=== PATIENT | female | born 1955 | race Caucasian/White ===

== ENCOUNTER → 2020-01-27 | Outpatient (CLI) | payer OTHER ==
[2020-01-27 14:55] VITALS: BP 170/85
--- NOTE | 2020-01-27 14:55 | ER RDC ASSESSMENT REPORT ---
Intake - In the Last 14 days Have you traveled outside [place]?: No Have you been in close contact with someone CONFIRMED: No Worked in Healthcare?: No - Symptoms Subjective Fever([place] feverish): Yes Chills: No Muscule Aches: No Runny Nose: No Sore Throat: No Cough (New or worsening chronic cough): Yes Shortness of breath: Yes Nausea or Vomiting: No Headache: No Abdominal Pain: No Diarrhea(3 or more loose stools in last 24 hours): No - Do you have any of the following Chronic lung disease: Asthma or emphysema or COPD: Yes Chronic Lung Disease Comment: asthma Cystic Fibrosis: No Diabetes: No High Blood Pressure: No Cardiovascular Disease: No Chronic Kidney Disease: No Chronic Liver Disease: No Chronic blood disorder like Sickle Cell Disease: No Weak immune system due to disease or medication: No Neurologic condition that limits movement: No Developmental delay - Moderate to Severe: No Recent (within past 2 weeks) or current : No Morbid Obesity (>100 pounds over ideal weight): No - Objective Temperature: 97.4 F Pulse Rate: 80 Respiratory Rate: 14 Blood Pressure: 170/85 O2 Sat by Pulse Oximetry: 95 Objective: Given above, testing performed: rapid strep, Flu A/B were negative COVID 19 submitted to [facility] If Testing Performed: Test Specimen Type Sent to [facility] lab Disposition: Home; Selfcare General - General Chief Complaint: Cough Time Seen by Provider: 01/27/20 13:45 Mode of Arrival: Ambulatory Information source: Patient - [facility] Patient complains to provider of: Fever cough wheezing Onset: Other - 2-3 days ago Quality of pain: No pain Associated symptoms: Nonproductive cough, Fever, Shortness of breath Exacerbated by: Coughing Relieved by: Remaining still, Other - OTC meds Similar symptoms previously: No Recently seen / treated by doctor: No Past Medical History - General Information source: Patient - Social History Smoking Status: Former Smoker Family History: Reviewed & Not Pertinent - Past Medical History Cardiac Medical History: Reports: None Pulmonary Medical History: Reports: Hx Asthma EENT Medical History: Reports: None Neurological Medical History: Reports: None Endocrine Medical History: Reports: None Renal/ Medical History: Reports: None Malignancy Medical History: Reports: None GI Medical History: Reports: None Musculoskeletal Medical History: Reports None Skin Medical History: Reports None Psychiatric Medical History: Reports: None Traumatic Medical History: Reports: None Infectious Medical History: Reports: None Physical Exam - Vital signs Interpretation: Hypertensive - General General appearance: Appears well, Alert In distress: None Notes: PHYSICAL EXAMINATION: GENERAL: Well-appearing and in no acute distress. HEAD: Atraumatic, normocephalic. EYES: sclera anicteric, conjunctiva are normal. ENT: nares patent. Moist mucous membranes. NECK: Normal range of motion, supple without lymphadenopathy LUNGS: CTAB and equal. No wheezes rales or rhonchi. HEART: Regular rate and rhythm without murmurs ABDOMEN: Soft, nontender, normal bowel sounds, no guarding. EXTREMITIES: Normal range of motion, no pitting edema. No cyanosis. NEUROLOGICAL: Cranial nerves grossly intact. Normal speech. PSYCH: Normal mood, normal affect. SKIN: Warm, Dry, normal turgor, no rashes or lesions noted Diagnostic Results Laboratory Results: Flu A/B and rapid strep negative Patient Education/Counseling Counseling/Education: Patient presents with upper respiratory symptoms worrisome for possible Covid 19. Patient does not have emergency worrying symptoms such as difficulty breathing, shortness of breath, chest pain, pressure, confusion or cyanosis. Patient was advised to follow up with PCP regarding hypertension. Patient appears suitable for discharge. Patient's vital signs are stable and patient is nontoxic in appearance. Good return precautions have been discussed with patient, patient verbalized understanding and is agreeable with discharge plan of care at this time. Guidance for worsening S/SX: As a person under investigation for Covid 19, the [place] department of Health and Human Services, division of public health advises you to adhere to the following guidance until your test results are reported to you. If your test result is positive, you will receive additional information from your provider and your local health department at that time. Remain at home until you are cleared by the health provider or public health authorities. Keep a log of visitors to your home, notify any visitors to your home of your isolation status. If you plan to move to a new address or leave the county, notify the local health department in your County. Call your doctor or seek care if you have an urgent medical need. Before seeking medical care, call ahead to get instructions from the provider before arriving at the medical office clinic or hospital. Notify them that you are being tested for the virus that causes Covid 19 so that arrangements can be made, as necessary, to prevent transmission to others in the healthcare setting. Next, notify the local health department in your county. If a medical emergency arises and you need to call 911, inform the first responders that you are being tested for the virus that causes Covid 19. Next, notify the local health department in your county. RDC Discharge - Discharge Clinical Impression: COVID 19 screen URI (upper respiratory infection) Qualifiers: URI type: unspecified URI Qualified Code(s): J06.9 - Acute upper respiratory infection, unspecified Condition: Stable Disposition: Home; Selfcare
[2020-01-27 15:27] LABS: A TYPE INFLUENZA AG NEGATIVE (NEGATIVE); B INFLUENZA AG NEGATIVE (NEGATIVE)
== END ==
LOC: RDC 13:35
PROVIDERS: ATTEND Registered Nurse
DX: Z20.828 Contact with and (suspected) exposure to other viral communicable diseases (principal); J06.9 Acute upper respiratory infection, unspecified; R50.9 Fever, unspecified; R05 Cough; J45.909 Unspecified asthma, uncomplicated; R06.02 Shortness of breath; I10 Essential (primary) hypertension; Z87.891 Personal history of nicotine dependence
CPT/HCPCS: 36415; 87070; 87635; 87804; 87880

== ENCOUNTER → 2020-04-22 | Outpatient (CLI) | payer OTHER ==
--- NOTE | 2020-04-22 09:27 | RADIOLOGY REPORT (SQ) ---
EXAM DESCRIPTION: U/S ABDOMEN COMPLETE W/O DOP IMAGES COMPLETED DATE/TIME: 04/22/2020 7:46 am REASON FOR STUDY: EPIGASTRIC PAIN R10.13 EPIGASTRIC PAIN COMPARISON: None. TECHNIQUE: Dynamic and static grayscale images acquired of the abdomen and recorded on PACS. Additio nal selected color Doppler and spectral images recorded. Note: Study does not meet criteria for complete doppler/duplex scan LIMITATIONS: None. FINDINGS: PANCREAS: No masses. Visualized pancreatic duct normal caliber. LIVER: No masses. Echotexture normal. LIVER VASCULATURE: Normal directional flow of the main portal vein and hepatic veins. GALLBLADDER: Surgically absent. ULTRASOUND-DETECTED WOLFE'S SIGN: Negative. INTRAHEPATIC DUCTS AND COMMON DUCT: The common bile duct is dilated up to 9 millimeters in greatest d imension ; this appears to be on the basis of a 5.4 millimeter echogenic focus distally. No intrahep atic biliary dilatation. INFERIOR VENA CAVA: Normal flow. AORTA: No aneurysm. RIGHT KIDNEY: Normal size. Normal echogenicity. No solid or suspicious masses. No hydronephros is. No calcifications. LEFT KIDNEY: Normal size. Normal echogenicity. No solid or suspicious masses. No hydronephrosi s. No calcifications. SPLEEN: Normal size. No solid masses. PERITONEAL AND PLEURAL SPACES: No ascites or effusions. OTHER: No other significant finding. IMPRESSION: Ectatic common bile duct on the basis of a 5 millimeter choledocholith. TECHNICAL DOCUMENTATION: JOB ID: [id number] 2010 [employer]- All Rights Reserved Reading location - IP/workstation name: [email or web address]
== END ==
LOC: WI 07:00
PROVIDERS: ATTEND Internal Medicine Gastroenterology
DX: K80.50 Calculus of bile duct without cholangitis or cholecystitis without obstruction (principal); R10.13 Epigastric pain
CPT/HCPCS: 76700

== ENCOUNTER 2020-04-24 10:23 | Day surgery (SDC) | payer OTHER ==
[2020-04-24] MEDS ORDERED: SUCCINYLCHOLINE CHLORIDE INJ 200 MG/10 ML VIAL ONE (10:54)
[2020-04-24] MEDS ORDERED: FENTANYL CITRATE INJ/PF 100 MCG/2 ML AMPUL ONE (12:51)
[2020-04-24] MEDS ORDERED: ONDANSETRON HCL INJ/PF 4 MG/2 ML SDV ONE (12:52)
[2020-04-24] MEDS ORDERED: PROPOFOL INJ 200 MG/20 ML VIAL IV ONE (12:52)
[2020-04-24] MEDS ORDERED: DEXAMETHASONE SOD PHOSPHATE INJ 4 MG/1 ML VIAL ONE (12:52)
[2020-04-24] MEDS ORDERED: MIDAZOLAM 2 MG/2 ML INJ ONE (12:52)
[2020-04-24] MEDS ORDERED: PROMETHAZINE HCL INJ 25 MG/1 ML VIAL IV PRN ×2 (13:23)
[2020-04-24] MEDS ORDERED: MEPERIDINE HCL/PF INJ 25 MG/1 ML DISP.SYRIN IV PRN (13:23)
[2020-04-24] MEDS ORDERED: FENTANYL CITRATE INJ/PF 100 MCG/2 ML AMPUL IV PRN ×3 (13:23)
[2020-04-24] MEDS ORDERED: ONDANSETRON HCL INJ/PF 4 MG/2 ML SDV IV PRN (13:23)
[2020-04-24] MEDS ORDERED: MORPHINE SULFATE 10 MG/ML INJ IV PRN (13:23)
[2020-04-24] MEDS ORDERED: DIPHENHYDRAMINE HCL 50 MG/ML VIAL IV PRN (13:23)
--- NOTE | 2020-04-24 14:25 | Operative Report ---
Operative Report DATE OF SURGERY: 04/24/20 Operative Report: Pre-op diagnosis: History of abdominal pain and abnormal ultrasound suggestive of choledocholithiasis Post-op diagnosis: 1. Common bile duct sludge Surgery: ERCP with sphincterotomy and balloon sludge extraction Medications: As per anesthesia Tissue removed: None Procedure: After informed consent obtained from patient, patient was placed under general anesthesia. The ERCP endoscope was then inserted into the esophagus blindly and advanced into the stomach. The duodenum was entered and the ampulla was identified. Using the triple-lumen sphincterotomy catheter the common bile duct was freely cannulated. A cholangiogram was obtained . A good sized sphincterotomy was then performed using the endocut mode. The catheter was removed over the guidewire before a 9-12 mm balloon catheter was inserted. The balloon was inflated to 12 mm in the proximal common bile duct and pulled down the duct. The duct was swept two more times. A balloon occlusion cholangiogram was normal. Patient tolerated procedure well. Findings Common bile duct: Small amount of sludge was extracted Intrahepatic ducts: Normal Pancreatic duct: Not cannulated Plan: Follow-up in the office. OPERATION: .
[2020-04-24] MEDS ORDERED: ACETAMINOPHEN 325 MG TABLET PO PRN (14:39)
[2020-04-24] MEDS ORDERED: SIMETHICONE 80 MG TAB.CHEW PO PRN (14:39)
[2020-04-24] MEDS ORDERED: DEXTROSE 5%-1/2 NORMAL SALINE 1,000 ML IV PRN (14:39)
[2020-04-24] MEDS ORDERED: PROMETHAZINE HCL INJ 25 MG/1 ML VIAL INJ PRN (14:40)
--- NOTE | 2020-04-24 15:18 | RADIOLOGY REPORT (SQ) ---
EXAM DESCRIPTION: NO CHG FLUORO; ENDO CATH/BILIARY DUCT IMAGES COMPLETED DATE/TIME: 04/24/2020 2:58 pm REASON FOR STUDY: ERCP ASSISTED WITH FLUORO K83.8 OTHER SPECIFIED DISEASES OF BILIARY TRACT COMPARISON: 04/22/2020 FLUOROSCOPY TIME: 2.0 MINUTES 7 images saved to PACS. TECHNIQUE: LIMITED FLUOROSCOPIC IMAGES WERE OBTAINED DURING ENDOSCOPIC RETROGRADE CHOLANGIOGRAM. Daniella ges were obtained from an intraoperative cholangiogram. LIMITATIONS: None. FINDINGS: ENDOSCOPE OVERLIES DESCENDING PORTION OF THE DUODENUM. CANNULATION OF THE CBD WITH OPACIF ICATION OF THE CBD AND INTRAHEPATIC DUCTS. EVIDENCE OF BALLOON SWEEP. NO RESIDUAL FILLING DEFECTS I DENTIFIED. PLEASE SEE OPERATIVE REPORT FOR DETAILED DESCRIPTION. IMPRESSION: INTRAOPERATIVE FLUOROSCOPIC IMAGES OBTAINED. SEE OPERATIVE REPORT FOR DETAILED DESCRIPT ION. COMMENT: Quality ID 145: Final reports for procedures using fluoroscopy that document radiation exp osure indices, or exposure time and number of fluorographic images (if radiation exposure indices are not available) TECHNICAL DOCUMENTATION: JOB ID: [id number] 2010 [employer]- All Rights Reserved Reading location - IP/workstation name: [email or web address]
--- NOTE | 2020-04-24 15:18 | RADIOLOGY REPORT (SQ) ---
EXAM DESCRIPTION: NO CHG FLUORO; ENDO CATH/BILIARY DUCT IMAGES COMPLETED DATE/TIME: 04/24/2020 2:58 pm REASON FOR STUDY: ERCP ASSISTED WITH FLUORO K83.8 OTHER SPECIFIED DISEASES OF BILIARY TRACT COMPARISON: 04/22/2020 FLUOROSCOPY TIME: 2.0 MINUTES 7 images saved to PACS. TECHNIQUE: LIMITED FLUOROSCOPIC IMAGES WERE OBTAINED DURING ENDOSCOPIC RETROGRADE CHOLANGIOGRAM. Daniella ges were obtained from an intraoperative cholangiogram. LIMITATIONS: None. FINDINGS: ENDOSCOPE OVERLIES DESCENDING PORTION OF THE DUODENUM. CANNULATION OF THE CBD WITH OPACIF ICATION OF THE CBD AND INTRAHEPATIC DUCTS. EVIDENCE OF BALLOON SWEEP. NO RESIDUAL FILLING DEFECTS I DENTIFIED. PLEASE SEE OPERATIVE REPORT FOR DETAILED DESCRIPTION. IMPRESSION: INTRAOPERATIVE FLUOROSCOPIC IMAGES OBTAINED. SEE OPERATIVE REPORT FOR DETAILED DESCRIPT ION. COMMENT: Quality ID 145: Final reports for procedures using fluoroscopy that document radiation exp osure indices, or exposure time and number of fluorographic images (if radiation exposure indices are not available) TECHNICAL DOCUMENTATION: JOB ID: [id number] 2010 [employer]- All Rights Reserved Reading location - IP/workstation name: [email or web address]
[2020-04-24 16:09] VITALS: BP 156/89
== END 2020-04-24 16:05 | disposition home or self-care (01) ==
LOC: OROUT 10:23
PROVIDERS: ATTEND Internal Medicine Gastroenterology
DX: K83.8 Other specified diseases of biliary tract (principal); I10 Essential (primary) hypertension; K21.9 Gastro-esophageal reflux disease without esophagitis; Z79.899 Other long term (current) drug therapy; E78.00 Pure hypercholesterolemia, unspecified; Z87.19 Personal history of other diseases of the digestive system
CPT/HCPCS: 43262; 36415; 87635; 74328; 00732; Q9967; J2250; J1100; J3010; J0330; J2405; J2704; C9803; 732

== ENCOUNTER → 2020-05-25 | Outpatient (CLI) | payer OTHER ==
--- NOTE | 2020-05-25 13:09 | RADIOLOGY REPORT (SQ) ---
EXAM DESCRIPTION: NM GASTRIC EMPTYING STUDY IMAGES COMPLETED DATE/TIME: 05/25/2020 12:56 pm REASON FOR STUDY: ABD PAIN, EPIGASTRIC (R10.13), BLOATING (R14.0) R10.13 EPIGASTRIC PAIN R14.0 ABD OMINAL DISTENSION (GASEOUS) COMPARISON: None. RADIONUCLIDE AND DOSE: 2.15 millicuries Tc-99m Sulfur Colloid. Egg salad sandwich The route of agent administration: Oral. TECHNIQUE: 1 minute serial static imaging performed at time of meal, 1 hour, 2 hours, 3 hours, and 4 hours as needed. Once stomach reaches 90% emptying, the test is complete. Image intensity values pl otted with respect to time with linear regression algorithm. LIMITATIONS: None. FINDINGS: Patient was observed for 4 hours. Immediate post meal serves as baseline. Gastric emptying at 30 minutes was 14.7%. Gastric emptying at 60 minutes was 29.4% Gastric emptying at 90 minutes was 44.0%. Gastric emptying at 120 minutes was 58.7%. Gastric emptying at 240 minutes was 100%. Normal values: 60 minutes: 30-90% retained. If less than 30%, abnormally rapid emptying. If greater than 90%, delaye d gastric emptying. 120 minutes: <60% retained. If greater than 60%, delayed gastric emptying. 240 minutes: <10% retained. If greater than 10%, delayed gastric emptying. IMPRESSION: NORMAL GASTRIC EMPTYING. TECHNICAL DOCUMENTATION: JOB ID: [id number] 2010 [employer]- All Rights Reserved rev-03/16 Reading location - IP/workstation name: [email or web address]
== END ==
LOC: RAD 07:43
PROVIDERS: ATTEND Internal Medicine Gastroenterology
DX: R10.13 Epigastric pain (principal); R14.0 Abdominal distension (gaseous)
CPT/HCPCS: 78264; A9541

== ENCOUNTER → 2020-06-01 | Outpatient (CLI) | payer OTHER ==
--- NOTE | 2020-06-01 13:42 | RADIOLOGY REPORT (SQ) ---
EXAM DESCRIPTION: CT ABDOMEN COMBO IMAGES COMPLETED DATE/TIME: 06/01/2020 1:28 pm REASON FOR STUDY: R10.13 EPIGASTRIC PAIN R10.13 EPIGASTRIC PAIN COMPARISON: None. TECHNIQUE: CT scan of the abdomen performed with and without intravenous contrast, and with oral con trast. Contrasted imaging performed using helical scanning technique with dynamic intravenous contras t injection. Images reviewed with lung, soft tissue, and bone windows. Reconstructed coronal and sagi ttal MPR images reviewed. Delayed images for evaluation of the urinary system also acquired and evalu ated. All images stored on PACS. All CT scanners at this facility use dose modulation, iterative reconstruction, and/or weight based d osing when appropriate to reduce radiation dose to as low as reasonably achievable (ALARA). [facility]: Dose Right [facility]: CareDose [facility]: Dose Right [facility]: Teradose 4D [facility]: [employer] CONTRAST TYPE AND DOSE: 50 mL, Omnipaque 350 RENAL FUNCTION: Creatinine 0.9 RADIATION DOSE: CT Rad equipment meets quality standard of care and radiation dose reduction techniq ues were employed. CTDIvol: 10.1 - 16.9 mGy. DLP: 1488 mGy-cm.. LIMITATIONS: None. FINDINGS: NONCONTRASTED IMAGING: No significant renal or bladder calcifications. No other significan t organ calcifications. POSTCONTRASTED IMAGING: LOWER CHEST: No significant findings. No nodules or infiltrates. LIVER: Normal size. No masses. No dilated ducts. SPLEEN: Normal size. No focal lesions. PANCREAS: No masses. No significant calcifications. No adjacent inflammation or peripancreatic fluid collections. Pancreatic duct not dilated. GALLBLADDER: Surgically absent. ADRENAL GLANDS: No significant masses or asymmetry. RIGHT KIDNEY AND URETER: No solid masses. No significant calcifications. No hydronephrosis or hyd roureter. LEFT KIDNEY AND URETER: No solid masses. No significant calcifications. No hydronephrosis or hydr oureter. AORTA AND VESSELS: No aneurysm. No dissection. Renal arteries, SMA, celiac without stenosis. RETROPERITONEUM: No retroperitoneal adenopathy, hemorrhage or masses. BOWEL AND PERITONEAL CAVITY: No masses or inflammatory changes. No free fluid or peritoneal masses. APPENDIX: Not visualized. ABDOMINAL WALL: No masses. No hernias. BONES: No significant or acute findings. OTHER: No other significant finding. IMPRESSION: NO SIGNIFICANT OR ACUTE ABNORMALITY IN THE ABDOMEN. TECHNICAL DOCUMENTATION: JOB ID: [id number] Quality ID # 436: Final reports with documentation of one or more dose reduction techniques (e.g., Au tomated exposure control, adjustment of the mA and/or kV according to patient size, use of iterative reconstruction technique) 2010 [employer]- All Rights Reserved Reading location - IP/workstation name: [email or web address]
== END ==
LOC: RAD 12:53
PROVIDERS: ATTEND Internal Medicine Gastroenterology
DX: R10.13 Epigastric pain (principal)
CPT/HCPCS: 74170; 82565

== ENCOUNTER → 2020-09-10 | Outpatient (CLI) | payer OTHER ==
--- NOTE | 2020-09-10 13:22 | RADIOLOGY REPORT (SQ) ---
EXAM DESCRIPTION: HAND RIGHT 3 VIEWS IMAGES COMPLETED DATE/TIME: 09/10/2020 12:30 pm REASON FOR STUDY: RT HAND PAIN M79.641 PAIN IN RIGHT HAND COMPARISON: None. EXAM PARAMETERS: NUMBER OF VIEWS: Three views. TECHNIQUE: AP, lateral and oblique radiographic images acquired of the right hand. LIMITATIONS: None. FINDINGS: MINERALIZATION: Normal. BONES: No acute fracture or dislocation. No worrisome bone lesions. No significant osteophytes. JOINTS: No erosions. No eufemia-articular osteopenia. No chondrocalcinosis. SOFT TISSUES: There appears to be mild dorsal soft tissue swelling. OTHER: No other significant finding. IMPRESSION: Mild soft tissue swelling. No acute findings. TECHNICAL DOCUMENTATION: JOB ID: [id number] 2010 [employer]- All Rights Reserved Reading location - IP/workstation name: [email or web address]
--- OUTSIDE RECORDS SUMMARY | 2020-09-11 15:26 | XMS REPORT ---
:1955 Author Organization [facility] Address [facility] [address] [place] [id number] Care Team Providers Name Role Phone PCP, PER PATIENT Primary Care Physician Unavailable Jennifer Attending Clinician Unavailable Allergies, Adverse Reactions, Alerts This patient has no known allergies or adverse reactions. Medications This patient has no known medications. Problems Condition Condition Condition Status Onset Resolution Last Treatin g Comments Name Details Category Date Date Treatment Clinician Date Not on file Not on file [id number] Procedures Procedure Date / Time Performed Performing Clinician Devic e OFFICE/OUTPATIENT VISIT EST 2020-08-25 16:00:00 OFFICE/OUTPATIENT VISIT EST 2020-04-02 09:00:00 DSCHRG MED/CURRENT MED MERGE 2020-03-02 14:45:00 OFFICE/OUTPATIENT VISIT EST 2020-03-02 14:45:00 OFFICE/OUTPATIENT VISIT NEW 2020-01-06 14:30:00 Results Test Description Test Time Test Comments Text Results Atomic Results Result Comments SARS-CoV-2, TERE\S\ 2020-07-30 15:25:00 Test Item Value Reference Range Comments SARS-CoV-2, TERE (test code = 16005-9) Not Detected Not Detect ed VARICELLA ZOSTER VIRUS ANTIBODY (IGG)2020-05-26 10:44:00>4000.00MMR (IGG) PANEL (MEASLES, MUMPS, RUBELLA)2020-05-26 10:44:00 Test Item Value Reference Range Comments RUBELLA ANTIBODY (IGG) (test code = 07562225) 20.00 index MUMPS VIRUS ANTIBODY (IGG) (test code = >300.00 AU/mL 71922776) MEASLES ANTIBODY (IGG) (test code = 25434455) >300.00 AU/mL LIPID PANEL WITH REFLEX TO DIRECT [id number] 09:00:00 Test Item Value Reference Range Comments NON HDL CHOLESTEROL (test code = 45150780) 188 mg/dL (calc) <130 CHOLESTEROL, TOTAL (test code = 79649462) 271 mg/dL <200 CHOL/HDLC RATIO (test code = 39228645) 3.3 (calc) <5.0 LDL-CHOLESTEROL (test code = 05562825) 164 mg/dL (calc) HDL CHOLESTEROL (test code = 51876381) 83 mg/dL > OR = 50 TRIGLYCERIDES (test code = 81287390) 119 mg/dL <150 [id number] 09:00:002.04HEMOGLOBIN A1c WITH [id number] 09:00:00 Test Item Value Reference Range Comments eAG (mg/dL) (test code = 40836996) 111 (calc) eAG (mmol/L) (test code = 38526038) 6.2 (calc) HEMOGLOBIN A1c (test code = 4548-4) 5.5 % of total Hgb <5.7 CBC (INCLUDES DIFF/PLT)2020-03-05 09:00:00 Test Item Value Reference Range Comments MONOCYTES (test code = 77247065) 5.0 % MCH (test code = 65707219) 30.6 pg 27.0-33.0 HEMOGLOBIN (test code = 18320762) 13.7 g/dL 11.7-15.5 BASOPHILS (test code = 00883109) 1.0 % ABSOLUTE BASOPHILS (test code = 14438193) 61 cells/uL 0-200 ABSOLUTE MONOCYTES (test code = 50316408) 305 cells/uL 200-95 0 ABSOLUTE NEUTROPHILS (test code = 60024465) 4233 cells/uL 1500 -7800 HEMATOCRIT (test code = 39736963) 40.6 % 35.0-45.0 ABSOLUTE EOSINOPHILS (test code = 76109763) 232 cells/uL 15-5 00 RED BLOOD CELL COUNT (test code = 02739189) 4.48 Million/uL 3.80 -5.10 ABSOLUTE LYMPHOCYTES (test code = 30947281) 1269 cells/uL 850- 3900 MCV (test code = 62516649) 90.6 fL 80.0-100.0 LYMPHOCYTES (test code = 81564446) 20.8 % MCHC (test code = 97578090) 33.7 g/dL 32.0-36.0 RDW (test code = 28277012) 12.7 % 11.0-15.0 MPV (test code = 10105227) 9.7 fL 7.5-12.5 WHITE BLOOD CELL COUNT (test code = 6.1 Thousand/uL 3.8-10.8 87497305) NEUTROPHILS (test code = 35198956) 69.4 % PLATELET COUNT (test code = 45378395) 214 Thousand/uL 140-400 EOSINOPHILS (test code = 41086047) 3.8 % COMPREHENSIVE METABOLIC [id number] 09:00:00 Test Item Value Reference Range Comments BILIRUBIN, TOTAL (test code = 0.4 mg/dL 0.2-1.2 83468159) UREA NITROGEN (BUN) (test code = 13 mg/dL 7-25 56376168) eGFR NON-AFR. [place]OTHO (test code = 69 mL/min/1.73m2 > OR = 60 81916589) CALCIUM (test code = 93353627) 9.3 mg/dL 8.6-10.4 POTASSIUM (test code = 92164531) 3.9 mmol/L 3.5-5.3 GLUCOSE (test code = 49139188) 107 mg/dL 65-99 eGFR (test code = 80 mL/min/1.73m2 > OR = 60 64575403) ALKALINE PHOSPHATASE (test code = 64 U/L 37-153 30608015) BUN/CREATININE RATIO (test code = NOT APPLICABLE (calc) 6-22 60447862) CARBON DIOXIDE (test code = 95005083) 32 mmol/L 20-32 ALT (test code = 56764115) 13 U/L 6-29 CREATININE (test code = 69117357) 0.89 mg/dL 0.50-0.99 ALBUMIN (test code = 67370284) 4.2 g/dL 3.6-5.1 CHLORIDE (test code = 90040345) 103 mmol/L 98-110 PROTEIN, TOTAL (test code = 31367336) 6.5 g/dL 6.1-8.1 AST (test code = 24334575) 21 U/L 10-35 SODIUM (test code = 80293741) 142 mmol/L 135-146 GLOBULIN (test code = 16189138) 2.3 g/dL (calc) 1.9-3.7 ALBUMIN/GLOBULIN RATIO (test code = 1.8 (calc) 1.0-2.5 15889142) Assessments Condition Name Status Diagnosis Date Treating Clinici an Body mass index (BMI) 24.0-24.9, adult Active Cervicalgia Active Segmental and somatic dysfunction of Active cervical region Segmental and somatic dysfunction of upper Active extremity Segmental and somatic dysfunction of Active cervical region Segmental and somatic dysfunction of upper Active extremity Body mass index (BMI) 24.0-24.9, adult Active Mixed hyperlipidemia Active Spondyls w/o myelopathy or radiculopathy, Active lumbosacr region Urge incontinence Active Segmental and somatic dysfunction of lumbar Active region Segmental and somatic dysfunction of Active cervical region Essential (primary) hypertension Active Lateral epicondylitis, left elbow Active Frequency of micturition Active Overactive bladder Active Encounters Start End Encounter Admission Attending Care Care Encounter Date/Time Date/Time Type Type Clinicians Facility Department ID 2020-08-25 2020-08-25 Outpatient [facility] 3 [id number] 16:00:00 16:00:00 Evgeny Gamble???s [id number] and [id number] [facility]t [facility] y Clini 2020-04-02 2020-04-02 Outpatient [facility] C [id number] 09:00:00 09:00:00 Evgeny Gamble [id number] s [id number] and [id number] Multispecialt y [facility], 2020-03-02 2020-03-02 Outpatient [facility] 2 [id number] 14:45:00 14:45:00 Evgeny Children [id number] s [id number] and DD7 Multispecialt y [facility], 2020-01-30 2020-01-30 Outpatient [facility] [id number] 00:00:00 00:00:00 2020-01-30 2020-01-30 Outpatient [facility] [id number] 00:00:00 00:00:00 2020-01-28 2020-01-28 Outpatient [facility] [id number] 16:22:58 16:23:05 [id number] 2020-01-28 2020-01-28 Outpatient [facility] [id number] 00:00:00 00:00:00 [id number] [facility] [id number] 09:20:00 09:40:00 2020-01-27 2020-01-27 [facility] [id number] 00:00:00 00:00:00 [id number] 2020-01-27 [facility] [id number] 00:00:00 00:00:00 2020-01-27 2020-01-27 [facility] [id number] 00:00:00 00:00:00 2020-01-26 2020-01-26 [facility] [id number] 00:00:00 00:00:00 2020-01-26 2020-01-26 [facility] [id number] 00:00:00 00:00:00 2020-01-06 2020-01-06 Outpatient Jennifer, [facility] 6 [id number] 14:30:00 14:30:00 Evgeny Children [id number] s [id number] and [id number] Multispecialt y Clinic, Payers Payer Name Policy Type Policy Number Effective Date Expiration D ate UMR [id number] 2019 00:00:00 Plan of Treatment Planned Activity Planned Date Details Comments Future Scheduled Test [code = ] Future Scheduled Test [code = ] Future Scheduled Test [code = ] Future Scheduled Test [code = ] Future Scheduled Test [code = ] Future Scheduled Test [code = ] Future Scheduled Test [code = ] Future Scheduled Test [code = ] Future Scheduled Test [code = ] Future Scheduled Test [code = ] Social History This patient has no known social history. Vital Signs This patient has no known vital signs.
== END ==
LOC: OD 12:12
PROVIDERS: ATTEND Nurse Practitioner Family
DX: M79.641 Pain in right hand (principal); M79.89 Other specified soft tissue disorders

== ENCOUNTER 2020-09-12 06:47 | Emergency (ER) | payer OTHER ==
--- NOTE | 2020-09-12 08:19 | ER Document Report ---
ED General - General Chief Complaint: Hand Injury Stated Complaint: HAND INJURY Time Seen by Provider: 09/12/20 08:18 Primary Care Provider: ORLIN COATES FNP [NO LOCAL MD] - Follow up as needed TUSHAR HERNANDEZ JR, DO [ACTIVE PROVISIONAL STAFF] - Follow up as needed - HPI Notes: 65-year-old female presents to the emergency room today for evaluation of her right hand after she bent it backwards while she was trying to catch herself after tripping 4 days ago. Denies any head trauma or change in loc. Seen by her primary care provider on , did they did do an x-ray of her right hand which is negative for any acute fracture, she states did not give her a splint, no pain medication. Patient reports that swelling is getting dramatically worse in her right hand. Denies any prior fracture or injury to her right hand. Denies fevers, chills, chest pain,palpitations, shortness of breath, dyspnea, nausea, vomiting, diarrhea, abdominal pain, hematuria,blurred vision, double vision, loss of vision, speech changes, LH, dizziness, syncope, headaches, wheezing, ST, URI, neck pain, weakness, bowel or bladder dysfunction, saddle anesthesia, numbness or tingling in bilateral upper or lower extremities equally, muscle paralysis, weakness in bilateral upper or lower extremities equally or rash. Denies IV drug use. - Related Data Allergies/Adverse Reactions: latex Allergy (Severe, Verified 04/23/20 14:53) rash Past Medical History - General Information source: Patient - Social History Smoking Status: Unknown if Ever Smoked Family History: Reviewed & Not Pertinent Patient has homicidal ideation: No - Past Medical History Cardiac Medical History: Denies: Hx Coronary Artery Disease, Hx Heart Attack, Hx Hypertension Pulmonary Medical History: Denies: Hx Asthma, Hx Bronchitis, Hx COPD, Hx Pneumonia Neurological Medical History: Denies: Hx Cerebrovascular Accident, Hx Seizures Musculoskeletal Medical History: Denies Hx Arthritis - Immunizations Hx Diphtheria, Pertussis, Tetanus Vaccination: Yes Review of Systems - Review of Systems Constitutional: No symptoms reported EENT: No symptoms reported Cardiovascular: No symptoms reported Respiratory: No symptoms reported Gastrointestinal: No symptoms reported Genitourinary: No symptoms reported Female Genitourinary: No symptoms reported Musculoskeletal: See HPI Skin: No symptoms reported Hematologic/Lymphatic: No symptoms reported Neurological/Psychological: No symptoms reported Physical Exam - Vital signs Vitals: Temp Pulse Resp BP Pulse Ox 98.3 F 78 14 147/73 H 97 09/12/20 06:55 09/12/20 06:55 09/12/20 06:55 09/12/20 06:55 09/12/20 06:55 - Notes Notes: MEDICATIONS: I agree with the patient medications as charted by the RN. ALLERGIES: I agree with the allergies as charted by the RN. PAST MEDICAL HISTORY/PAST SURGICAL HISTORY: Reviewed and agree as charted by RN. SOCIAL HISTORY: Reviewed and agree as charted by RN. FAMILY HISTORY: No significant familial comorbid conditions directly related to patient complaint EXAM: Reviewed vital signs as charted by RN. PHYSICAL EXAMINATION: reviewed vital signs by RN GENERAL: Well-appearing, well-nourished and in no acute distress. HEAD: Atraumatic, normocephalic. EYES: Pupils equal round and reactive to light, extraocular movements intact, conjunctiva are normal. ENT: Nares patent, oropharynx clear without exudates. Moist mucous membranes. NECK: Normal range of motion, supple without lymphadenopathy LUNGS: Breath sounds clear to auscultation bilaterally and equal. No wheezes rales or rhonchi. HEART: Regular rate and rhythm without murmurs ABDOMEN: Soft, nontender, nondistended abdomen. No guarding, no rebound. No masses appreciated. Female : deferred Musculoskeletal: Normal range of motion, no pitting or edema. No cyanosis. No noted pain with flexion, extension but noted pain with abduction, adduction of digit #2-5 on metatarsals. Full motor and sensory function in HEATHER. Electronics Tech + 2 BUE equally. Snuffbox tenderness negative on right and left. Ulnar and radial pulses + 2 BUE equally. DTRs +2 in bilateral upper extremities equally. No deformity noted of hand or wrist bilaterally. Normal flexion, extension, ulnar/radial deviation. Negative kanavels sign. No open wounds or drainage from wrist. No vascular compromise. full motor and sensory function with medial, radial and ulnar nerves bilaterally and equally. NEUROLOGICAL: Cranial nerves grossly intact. Normal speech, normal gait. Normal sensory, motor exams PSYCH: Normal mood, normal affect. SKIN: Warm, Dry, normal turgor, no rashes or lesions noted. Course - Re-evaluation Re-evalutation: 09/12/20 10:06 Afebrile vital stable no distress. Nurses notes reviewed. X-ray shows of right hand negative for any acute fracture dislocation or foreign body, noted soft tissue swelling. Patient placed in a cock-up splint. Advised to follow-up with clerical support specialist as well as primary care provider. Prescription given for meloxicam and muscle relaxers. Advised to not drive, drink alcohol or operate heavy machinery while taking medication as it can cause sedation or impairment of cognitive function. After performing a Medical Screening Examination, I estimate there is LOW risk for OPEN FRACTURE, COMPARTMENT SYNDROME, DEEP VENOUS THROMBOSIS, ACUTE TENDON RUPTURE, or NEUROVASCULAR INJURY thus I consider the discharge disposition reasonable. I have reevaluated this patient multiple times and no significant life threatening changes are noted. The patient and I have discussed the diagnosis and risks, and we agree with discharging home to closely follow-up with their primary doctor or the referral orthopedist with the understanding that symptoms and presentations can change. We also discussed returning to the Emergency Department immediately if new or worsening symptoms occur. We have discussed the symptoms which are most concerning (e.g., changing or worsening pain, numbness, weakness) that necessitate immediate return - Vital Signs Vital signs: Temp Pulse Resp BP Pulse Ox 98.3 F 78 14 147/73 H 97 09/12/20 06:55 09/12/20 06:55 09/12/20 06:55 09/12/20 06:55 09/12/20 06:55 Discharge - Discharge Clinical Impression: Right hand pain Condition: Stable Disposition: HOME, SELF-CARE Instructions: Muscle Relaxers ([facility]), Muscle Strain ([facility]), Sprain ([facility]), Temporary Splint ([facility]) Additional Instructions: Your x-ray today was negative for any acute fracture but it did show significant swelling. You were placed in a cock-up splint to help with immobilization. An orthopedic referral has been given for you to follow-up with as well as her primary care provider. You were given a sixpack of [place] to go home with to help with pain as well as muscle relaxers and naproxen which is an anti- inflammatory medication. Please only take the [place] when having severe pain, please do not drive, consume alcohol or operate heavy machinery while taking the [place] or the muscle relaxers as it can cause sedation or impairment of cognitive function. Please alternate between Tylenol and naproxen as directed. Return immediately for any new or worsening symptoms. Follow up with primary care provider, call tomorrow to make followup appointment. Prescriptions: Naproxen 500 mg PO BID #10 tablet Methocarbamol [Robaxin 500 mg Tablet] 500 mg PO QID PRN #15 tablet PRN Reason: Forms: Return to Work Referrals: ORLIN COATES FNP [NO LOCAL MD] - Follow up as needed TUSHAR HERNANDEZ JR, DO [ACTIVE PROVISIONAL STAFF] - Follow up as needed
--- NOTE | 2020-09-12 10:06 | RADIOLOGY REPORT (SQ) ---
EXAM DESCRIPTION: HAND RIGHT 3 VIEWS IMAGES COMPLETED DATE/TIME: 09/12/2020 9:18 am REASON FOR STUDY: right hand pain s/p twisted. COMPARISON: None. EXAM PARAMETERS: NUMBER OF VIEWS: Three views. TECHNIQUE: AP, lateral and oblique radiographic images acquired of the right hand. LIMITATIONS: None. FINDINGS: MINERALIZATION: Normal. BONES: No acute fracture or dislocation. No worrisome bone lesions. JOINTS: No effusions. SOFT TISSUES: Minimal dorsal right hand soft tissue swelling. No foreign body. OTHER: No other significant finding. IMPRESSION: No acute fracture right hand. Minimal dorsal hand soft tissue swelling TECHNICAL DOCUMENTATION: JOB ID: [id number] 2010 [employer]- All Rights Reserved Reading location - IP/workstation name: [email or web address]
[2020-09-12] MEDS ORDERED: HYDROCODONE/ACETAMINOPHEN 5-325 MG (6 TAB/ER DISP) PO PRN (10:18)
[2020-09-12 10:50] VITALS: BP 171/84
== END 2020-09-12 10:43 | disposition home or self-care (01) ==
LOC: ER 06:47
DX: M79.641 Pain in right hand (principal); W18.40XA Slipping, tripping and stumbling without falling, unspecified, initial encounter
CPT/HCPCS: 99284